=== PATIENT | female | born 1950 ===

== ENCOUNTER 2020-07-20 09:19 | Outpatient (CLI) | payer OTHER ==
[~2020-07-20 09:19] MED LIST: SKELAXIN800 MG PO
== END 2020-07-20 10:01 | disposition home or self-care (01) ==
LOC: SONOGRAMA 09:19
PROVIDERS: ATTEND Pathology Anatomic Pathology
DX: D34 Benign neoplasm of thyroid gland (principal); E04.1 Nontoxic single thyroid nodule; E07.89 Other specified disorders of thyroid

== ENCOUNTER 2020-12-14 07:57 | Outpatient (CLI) | payer OTHER | END 2020-12-14 08:03 | disposition home or self-care (01) | LOC: SONOGRAMA 07:57 | PROVIDERS: ATTEND Pathology Anatomic Pathology | DX: E04.1 Nontoxic single thyroid nodule (principal) ==

== ENCOUNTER 2021-05-17 08:21 | Outpatient (CLI) | payer OTHER | END 2021-05-17 09:56 | disposition home or self-care (01) | LOC: SONOGRAMA 08:21 | PROVIDERS: ATTEND Pathology Anatomic Pathology & Clinical Pathology | DX: D34 Benign neoplasm of thyroid gland (principal); E04.1 Nontoxic single thyroid nodule; E07.89 Other specified disorders of thyroid ==